=== PATIENT | male | born 1950 | race Caucasian/White ===

== ENCOUNTER 2025-03-28 08:47 | Outpatient (CLI) | payer MEDICARE, SELFPAY ==
--- NOTE | 2025-03-28 10:54 | P.ANES_ITS ---
Anesthesia Charges Start Date/Time Anesthesia Start Date: 03/28/25 Anesthesia Start Time: 10:21 Stop Date/Time Anesthesia Stop Date: 03/28/25 Anesthesia Stop Time: 10:52 Summary Extremes of Age - Over 70 or under 1: SIGNAL INTELLIGENCE/ELECTRONIC WARFARE Coding CPT Codes CPT Codes: ANES LWR INTST NDSC NOS - [id number] ([id number]) P3 - PATIENT W/SEVERE SYS DISEASE, QX - SIGNAL INTELLIGENCE/ELECTRONIC WARFARE SVC W/ MD MED DIRECTION, QK - SLIP COVER SEWER 2-4 CNCRNT ANES PROC Additional Codes: Summary - Extremes of Age - Over 70 or under 1: SIGNAL INTELLIGENCE/ELECTRONIC WARFARE ([id number])
--- NOTE | 2025-03-28 10:54 | W.ANESCHARGE ---
Anesthesia Charges Start Date/Time Anesthesia Start Date: 03/28/25 Anesthesia Start Time: 10:21 Stop Date/Time Anesthesia Stop Date: 03/28/25 Anesthesia Stop Time: 10:52 Summary Extremes of Age - Over 70 or under 1: HELPDESK ANALYST Coding CPT Codes CPT Codes: ANES LWR INTST NDSC NOS - [id number] ([id number]) P3 - PATIENT W/SEVERE SYS DISEASE, QX - HELPDESK ANALYST SVC W/ MD MED DIRECTION, QK - WEB PUBLISHER 2-4 CNCRNT ANES PROC Additional Codes: Summary - Extremes of Age - Over 70 or under 1: HELPDESK ANALYST ([id number])
--- NOTE | 2025-03-28 11:23 | P.ANES_ITS ---
Anesthesia Charges Start Date/Time Anesthesia Start Date: 03/28/25 Anesthesia Start Time: 10:21 Stop Date/Time Anesthesia Stop Date: 03/28/25 Anesthesia Stop Time: 10:52 Summary Extremes of Age - Over 70 or under 1: MDA Coding CPT Codes CPT Codes: ANES LWR INTST NDSC NOS - [id number] ([id number]) QK - PBX WIRE CHIEF 2-4 CNCRNT ANES PROC, QX - GIS SOFTWARE DEVELOPER SVC W/ MD MED DIRECTION, P3 - PATIENT W/SEVERE SYS DISEASE Additional Codes: Summary - Extremes of Age - Over 70 or under 1: MDA ([id number])
== END 2025-03-28 08:48 | disposition home or self-care (01) ==
LOC: OP CLINIC 08:50
PROVIDERS: PCP Family Medicine; Visit Provider Internal Medicine Gastroenterology
DX: Z12.11 Encounter for screening for malignant neoplasm of colon (principal); D12.3 Benign neoplasm of transverse colon; K57.30 Diverticulosis of large intestine without perforation or abscess without bleeding; Q43.8 Other specified congenital malformations of intestine; Z86.0101 Personal history of adenomatous and serrated colon polyps
CPT/HCPCS: 00811; 45385; 88305; 99100; J2704